=== PATIENT | male | born 1980 | race Asian ===

== ENCOUNTER 2021-02-18 23:15 | Emergency (ER) | payer BC ==
[~2021-02-18] VITALS: Ht 190.5 cm; Wt 129.3 kg
[2021-02-19 00:25] VITALS: BP 130/81; TEMP 99.2
== END 2021-02-19 00:30 | disposition home or self-care (01) ==
LOC: ED 23:15
DX: J06.9 Acute upper respiratory infection, unspecified (principal); R50.9 Fever, unspecified; J18.9 Pneumonia, unspecified organism; Z20.822 Contact with and (suspected) exposure to COVID-19; F17.210 Nicotine dependence, cigarettes, uncomplicated
CPT/HCPCS: 87635; 87651; 96372; 99283; J0696; J1100; U0003